=== PATIENT | male | born 1965 | race Caucasian/White ===

== ENCOUNTER 2016-07-11 08:48 | Day surgery (SDC) | payer BC ==
[2016-07-01 14:40] VITALS: BMI 35.5
[2016-07-11] MEDS ORDERED: BUPIVACAINE HCL/PF 2.5 MG/ML - 30 ML VIAL IJ ONE (12:17)
[2016-07-11] MEDS ORDERED: MIDAZOLAM HCL 2 MG/2 ML SINGLE DOSE VIAL ONE (12:21)
[2016-07-11] MEDS ORDERED: PROPOFOL 20 ML ONE (12:21)
[2016-07-11] MEDS ORDERED: ceFAZolin SODIUM 1 GM VIAL ONE (13:28)
[2016-07-11] MEDS ORDERED: ONDANSETRON 4 MG/2 ML VIAL ONE (13:46)
[2016-07-11] MEDS ORDERED: DEXAMETHASONE SOD PHOSPHATE 4 MG/1 ML VIAL ONE (13:46)
[2016-07-11] MEDS ORDERED: KETOROLAC TROMETHAMINE 30 MG/1 ML VIAL ONE (13:51)
[2016-07-11] MEDS ORDERED: BUPIVACAINE HCL/PF 0.25% (2.5MG/ML) 10 ML VIAL IJ ONE (13:54)
[2016-07-11] MEDS ORDERED: oxyCODONE HCL 5 MG TABLET PO PRN (14:09)
[2016-07-11] MEDS ORDERED: LACTATED RINGERS SOLUTION 1,000 ML IV SCH (14:15)
[2016-07-11] MEDS ORDERED: ONDANSETRON 4 MG/2 ML VIAL IVPUSH PRN (14:20)
[2016-07-11 17:05] VITALS: BP 135/62; PULSE 65; TEMP 98.3
--- NOTE | 2016-07-12 08:19 | OP ---
DATE OF OPERATION: 07/11/2016 SURGEON: Kevin Ordonez MD [employer]ICE TECHNICIAN: , CHELSEY PREOPERATIVE DIAGNOSES: 1. Left knee medial and lateral meniscal tear. 2. Left knee cartilage injury. 3. Left knee synovitis. POSTOPERATIVE DIAGNOSES: 1. Left knee medial and lateral meniscal tear. 2. Left knee cartilage injury. 3. Left knee synovitis. PROCEDURE: 1. Left knee arthroscopy, partial meniscectomy medial and lateral meniscus. 2. Left knee arthroscopy with chondroplasty and abrasion-plasty. 3. Left knee arthroplasty with synovectomy, CPT codes 15198, 2979, 2976. FINDINGS: 1. Medial meniscus body and posterior horn tear. 2. Lateral meniscus posterior horn tear. 3. Synovitis patella, femoral, medial and lateral notch area. 4. Grade 2-3 cartilage injury medial femoral condyle with minor anterior grade 4 changes. 5. Calcification of the meniscus/chondrocalcinosis. 6. ACL and PCL intact. 7. Grade 1-2 cartilage lateral joint line with chondrocalcinosis of the meniscus. 8. Grade 2-4 cartilage in the patella and femoral trochlea with large medial plica adhesion anteriorly. DESCRIPTION OF PROCEDURE: Informed consent was obtained. The patient was taken to the operating room where the left lower extremity was prepped and draped in a sterile fashion. A tourniquet was placed on the left upper thigh but not inflated. Using standard arthroscopic technique, a lateral incision and portal were made which allowed for introduction of the camera into the suprapatellar bursa. This was then taken to the medial joint line where under direct visualization, a medial incision and portal were made. Excessive synovium noted in the medial, lateral, patellofemoral and notch area was removed by the up-biting shaver and Bovie cautery. This was found to bring inflammatory tissue into the joint surface, a source of joint pain and dysfunction. Probing of the medial and lateral meniscus found tears described in the findings. These were removed with an up-biting shaver and taken back to a stable rim. Grade 2-3 degenerative changes were treated with chondroplasty, removing all flaking surfaces with low setting Bovie used along the periphery. Grade 4 changes were treated with abrasion-plasty. All areas of the knee were once again re-examined. The knee was then drained. A single suture was placed on all portals. Sterile dressing was placed. The patient was transferred to the recovery room. Geri [id number]
--- NOTE | 2016-07-15 13:19 | PATH ---
Surgical Pathology Report Patient Name: SOLA PEDRAZA [facility] [place]. Rec. #: [id number] /Age/Gender: 1965 (Age: 51) / M Account: [id number] Location: [facility] Taken: 07/14/2016 Received: 07/14/2016 Reported: 07/15/2016 Physicians: Kevin Ordonez M.D. Specimen(s) Received LEFT KNEE SHAVINGS Clinical History Left knee internal derangement Final Diagnosis KNEE, LEFT, ARTHROSCOPIC SHAVING: FIBROCARTILAGE WITH MYXOID DEGENERATIVE CHANGES, ALONG WITH PORTIONS OF SYNOVIUM AND HYALINE CARTILAGE. CALCIFIED MATERIAL MORPHOLOGICALLY CONSISTENT WITH PSEUDOGOUT (CPPD) PRESENT. Electronically Signed Ja Folres M.D. Gross Description Received in formalin, labeled "left knee shavings," is a 4.3 x 4.0 x 0.3 cm. aggregate of eckert-yellow soft tissue fragments. A construction sales representative portion is submitted in one cassette. 07/14/201607/14/2016
== END 2016-07-11 15:50 | disposition home or self-care (01) ==
LOC: FASU 08:48
PROVIDERS: ATTEND Orthopaedic Surgery
PROC: 0SBD4ZZ Excision of Left Knee Joint, Percutaneous Endoscopic Approach (ICD-10-PCS; 2016-07-11)
PROC: 0SBD4ZZ Excision of Left Knee Joint, Percutaneous Endoscopic Approach (ICD-10-PCS; 2016-07-11)
PROC: 0SBD4ZZ Excision of Left Knee Joint, Percutaneous Endoscopic Approach (ICD-10-PCS; principal; 2016-07-11 13:36)
DX: S83.242A Other tear of medial meniscus, current injury, left knee, initial encounter (principal); S83.282A Other tear of lateral meniscus, current injury, left knee, initial encounter; S83.8X1A Sprain of other specified parts of right knee, initial encounter; M65.861 Other synovitis and tenosynovitis, right lower leg; X58.XXXA Exposure to other specified factors, initial encounter; Y93.9 Activity, unspecified; Y92.9 Unspecified place or not applicable
CPT/HCPCS: 88304-TC; 94760